=== PATIENT | female | born 1935 | race Hispanic/Latino ===

== ENCOUNTER 2019-07-09 14:16 | Emergency (ER) | payer MEDICARE ==
--- NOTE | 2019-07-09 14:34 | Emergency Department Report ---
{null, Blank Doc - Documentation Documentation: This is a 83-year-old female that presents with hallucinations. Denies SI/HI. This initial assessment/diagnostic orders/clinical plan/treatment(s) is/are subject to change based on patient's health status, clinical progression and re- assessment by fellow clinical providers in the ED. Further treatment and workup at subsequent clinical providers discretion. Patient/guardians urged not to elope from the ED as their condition may be serious if not clinically assessed and managed. Initial orders include: 1- Patient sent to MAIN ED for further evaluation and treatment 2- senior label specialist was notified to have patient be brought back [facility]. 3- RN was notified to keep patient as close range and observation until room available 4- Patient presents with substantial risk of imminent harm to self, appears to be so unable to care for his/her own physical health and safety as to create an imminently life-endangering crisis, and has committed/expressed life endangering crisis to self. Due to this and other complaints, patient is put on psych hold. }
[2019-07-09 15:44] LABS: Basophils % (Auto) 0.6 % (0.0-1.8); Eosinophils # (Auto) 0.1 K/mm3 (0.0-0.4); Eosinophils % (Auto) 1.4 % (0.0-4.3); Hematocrit 43.2 % (30.3-42.9); Hemoglobin 14.2 gm/dl (10.1-14.3); Lymphocytes # (Auto) 0.9 K/mm3 (1.2-5.4); Lymphocytes % (Auto) 12.1 % (13.4-35.0); Mean Corpuscular HGB Conc 33 % (30-34); Mean Corpuscular Volume 94 fl (79-97); Monocytes # (Auto) 0.8 K/mm3 (0.0-0.8); Platelet Count 185 K/mm3 (140-440); Red Blood Count 4.59 M/mm3 (3.65-5.03); Red Cell Distribution Width 14.1 % (13.2-15.2)
[2019-07-09 15:58] LABS: INR 1.22 (0.87-1.13)
[2019-07-09 15:59] LABS: Partial Thromboplastin Time 38.3 Sec. (24.2-36.6)
[2019-07-09 16:10] LABS: Albumin 4.2 g/dL (3.9-5); Calcium 9.5 mg/dL (8.4-10.2)
[2019-07-09 16:50] LABS: Bacteria,Urine 2+ /HPF (Negative); Bilirubin,Urine NEG (Negative); Blood,Urine NEG (Negative); Color,Urine Straw (Yellow); Mucus,Urine FEW /HPF; Protein,Urine <15 mg/dL mg/dL (Negative); Urobilinogen,Urine < 2.0 mg/dL (<2.0)
[2019-07-09 16:55] LABS: Amphetamine Screen,Urine PRESUMPTIVE NEGATIVE; Benzodiazepines Screen,Urine PRESUMPTIVE NEGATIVE; Cannabinoid Screen,Urine PRESUMPTIVE NEGATIVE; Cocaine Screen,Urine PRESUMPTIVE NEGATIVE; Methadone Screen,Urine PRESUMPTIVE NEGATIVE; Opiate Screen,Urine PRESUMPTIVE NEGATIVE
[2019-07-09 18:17] VITALS: BP 163/66
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
== END 2019-07-09 19:52 | disposition home or self-care (01) ==
LOC: ED 14:16
DX: N28.9 Disorder of kidney and ureter, unspecified (principal); R44.0 Auditory hallucinations; F22 Delusional disorders; F43.10 Post-traumatic stress disorder, unspecified; I50.9 Heart failure, unspecified; J44.1 Chronic obstructive pulmonary disease with (acute) exacerbation; Z79.899 Other long term (current) drug therapy; Z88.0 Allergy status to penicillin
CPT/HCPCS: 36415; 80053; 80307; 80320; 81001; 82140; 84484; 85025; 85610; 85730; 87086; G0480